=== PATIENT | female | born 1965 | race Caucasian/White ===

== ENCOUNTER 2018-07-18 15:56 | Emergency (ER) | payer OTHER ==
--- NOTE | 2018-07-18 16:01 | PDOC ---
Rapid Medical Evaluation Chief Complaint: Vaginal Bleeding Time Seen by Provider: 07/18/18 15:59 Medical Evaluation: Allergies Allergy/AdvReac Type Severity Reaction Status Date / Time cephalexin monohydrate Allergy Verified 02/11/14 09:48 [From Keflex] erythromycin base Allergy Verified 02/11/14 09:48 [Erythromycin Base] Penicillins Allergy Verified 02/11/14 09:48 tetracycline [Tetracycline] Allergy Verified 02/11/14 09:48 aspirin AdvReac Verified 02/11/14 09:48 07/18/18 16:00 I have performed a brief in person evaluation of the patient. The patient presents with a CC of: vaginal bleeding Pt is post menopausal 5-6 years. Pt states she has had "spotting x 2-3 days." No family hx of uterine CA or ovarian CA. PE: Skin: No visible rash Lungs: Clear Heart:RRR MS: Moves all extremities without difficulty Neuro: Alert and oriented Psych: Approrpriate affect I have ordered the following: nothing at this time. The patient will proceed to the ED for further evaluation. Discharge Disposition - Diagnosis Vaginal bleeding - Referrals Referrals: Sanjuana Cho MD [Primary Care Provider] - - Patient Instructions - Post Discharge Activity
[2018-07-18 16:02] VITALS: BP 170/86; PULSE 89; TEMP 97.8; BMI 51.5
[2018-07-18 17:04] LABS: BASO % 1.3 % (0-2.0); EOS % 4.7 % (0-4.5); HEMATOCRIT 44.4 % (32.4-45.2); HEMOGLOBIN 15.2 GM/dL (10.7-15.3); MCH 30.3 pg (25.7-33.7); MCHC 34.3 g/dl (32.0-36.0); MEAN CELL VOLUME 88.4 fl (80-96); MEAN PLT VOLUME 8.2 fl (7.5-11.1); MONO % 7.7 % (3.8-10.2); NEUT % 61.3 % (42.8-82.8); PLATELET COUNT 307 K/MM3 (134-434); RBC 5.02 M/mm3 (3.60-5.2); RDW 13.8 % (11.6-15.6); WHITE BLOOD COUNT 6.8 K/mm3 (4.0-10.0)
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
--- NOTE | 2018-07-18 17:17 | PDOC ---
Attending Attestation - Resident Resident Name: VeroRosetta - ED Attending Attestation I have performed the following: I have examined & evaluated the patient, The case was reviewed & discussed with the resident, I agree w/resident's findings & plan, Exceptions are as noted - HPI HPI: 07/18/18 16:55 53 yo female p/w post menopausal vaginal bleeding -her LMP was 5 years ago -she has an appt w [facility]OLOG[facility]ER on Tuesday - - Physicial Exam PE: 07/18/18 17:17 obese 53 yo female w vaginal bleeding head ncat neck supple lungs cta b/l cvs [id number] abd protuberant,nontender exam done by the PA and reported as brownish discharge,no large clots neuro axox3 ,ambulatory 07/18/18 18:19 - Medical Decision Making 07/18/18 18:21 labs reviewed and there is no anemia pelvic US showed endometrial hyperplasia and maybe endometrial polyps vs neoplastic process. the results were explained to the pt and she has an appt with filenet architect on Tuesday
== END 2018-07-18 18:50 | disposition home or self-care (01) ==
LOC: JER 15:56
DX: N95.0 Postmenopausal bleeding (principal); I10 Essential (primary) hypertension; Z87.09 Personal history of other diseases of the respiratory system; Z86.718 Personal history of other venous thrombosis and embolism; Z79.82 Long term (current) use of aspirin; Z88.0 Allergy status to penicillin; Z88.1 Allergy status to other antibiotic agents; Z88.6 Allergy status to analgesic agent
CPT/HCPCS: 36415; 76830-TC; 85025; 99282-25

== ENCOUNTER 2018-08-10 12:22 | Day surgery (SDC) | payer OTHER ==
[2018-07-25 13:19] VITALS: BMI 53.2
--- NOTE | 2018-08-10 14:16 | HP ---
Admitting History and Physical - Admission Chief Complaint: Vaginal bleeding History of Present Illness: 53 yo Para 3 with postmenopausal bleeding, is pre op for D&C Hysteroscopy. History Source: Patient Limitations to Obtaining History: No Limitations - Past Medical History ...: No ...Para: 3 - Past Surgical History Additional Past Surgical History: Laparoscopy - Smoking History Smoking history: Never smoked Have you smoked in the past 12 months: No - Alcohol/Substance Use Hx Alcohol Use: No - Social History Usual Living Arrangement: Yes: With Spouse History of Recent Travel: No Home Medications - Allergies Allergies/Adverse Reactions: Allergies Allergy/AdvReac Type Severity Reaction Status Date / Time cephalexin monohydrate Allergy Rash Verified 07/25/18 13:21 [From Keflex] erythromycin base Allergy Rash Verified 07/25/18 13:21 [Erythromycin Base] Penicillins Allergy Rash Verified 07/25/18 13:21 tetracycline [Tetracycline] Allergy Rash Verified 07/25/18 13:21 aspirin AdvReac Verified 07/25/18 13:20 - Home Medications Home Medications: Ambulatory Orders Aspirin [Aspirin EC] 81 mg PO DAILY 07/25/18 Cholecalciferol (Vitamin D3) [Vitamin D3] 1,000 unit PO DAILY 07/25/18 Esomeprazole Magnesium [Nexium 24Hr] 20 mg PO DAILY 07/25/18 Furosemide [Lasix] 40 mg PO DAILY 07/25/18 Magnesium Amino Acid Chelate [Magnesium] 100 mg PO DAILY 07/25/18 Metoprolol Succinate 50 mg PO DAILY 07/25/18 [place]-3 Fatty Acids/Fish Oil [Fish Oil 1,000 mg Capsule] 1 each PO DAILY Ubidecarenone/Vit E Acet [Co Q-10 100 mg Softgel] 1 each PO DAILY 07/25/18 Family Disease History - Family Disease History Family History: Unremarkable Review of Systems - Review of Systems Constitutional: reports: No Symptoms Eyes: reports: No Symptoms HENT: reports: No Symptoms Neck: reports: No Symptoms Cardiovascular: reports: No Symptoms Respiratory: reports: No Symptoms Gastrointestinal: reports: No Symptoms Genitourinary: reports: Vaginal Bleeding Musculoskeletal: reports: No Symptoms Integumentary: reports: No Symptoms Neurological: reports: No Symptoms Endocrine: reports: No Symptoms Hematology/Lymphatic: reports: No Symptoms Psychiatric: reports: No Symptoms Pain Intensity: 0 Physical Examination Vital Signs: Vital Signs Temperature 97.3 F L 11/29/18 13:22 Pulse Rate 97 H 08/10/18 13:22 Respiratory Rate 16 08/10/18 13:22 Blood Pressure 127/77 08/10/18 13:22 O2 Sat by Pulse Oximetry (%) 96 08/10/18 13:22 Constitutional: Yes: Well Nourished Eyes: Yes: Conjunctiva Clear HENT: Yes: Atraumatic Neck: Yes: Supple Cardiovascular: Yes: Regular Rate and Rhythm Respiratory: Yes: Regular, CTA Bilaterally Neurological: Yes: Alert, Oriented ...Motor Strength: WNL Psychiatric: Yes: Alert, Oriented Assessment/Plan Postmenopausal bleeding Pre op for D&C hysteroscopy Consent signed Anesthesia to see patient
[2018-08-10] MEDS ORDERED: PROPOFOL 20 ML ONE (14:28)
[2018-08-10] MEDS ORDERED: SUCCINYLCHOLINE CHLORIDE 200 MG/10 ML VIAL ONE (14:28)
--- NOTE | 2018-08-10 14:59 | OP ---
Operative Note - Note: Operative Date: 08/10/18 Pre-Operative Diagnosis: Postmenopausal bleeding Operation: D&C Hysteroscopy Post-Operative Diagnosis: Same as Pre-op Surgeon: Ellie Nino Anesthesia: General Specimens Removed: Endometrial curetings Estimated Blood Loss (mls): 3 Operative Report Dictated: Yes
--- NOTE | 2018-08-10 15:25 | OP ---
DATE OF OPERATION: 08/10/2018 PREOPERATIVE DIAGNOSIS: Postmenopausal bleeding. POSTOPERATIVE DIAGNOSIS: Postmenopausal bleeding. PROCEDURE: Dilation and curettage hysteroscopy. SURGEON: Ellie Nino MD ANESTHESIA: General. COMPLICATIONS: None. ESTIMATED BLOOD LOSS: Less than 5 mL. PROCEDURE DESCRIPTION: The patient was taken to the operating room, where general anesthesia was administered. Patient was then placed in lithotomy position. She was then prepped and draped in appropriate sterile fashion. A weighted speculum was placed in the vagina. The anterior lip of the cervix was grasped with a single-tooth tenaculum. Then the uterus was sounded to 8 cm and a 5-mm hysteroscope was then gently introduced into the uterine cavity. The cavity was visualized. There was no polyp noted. Both ostia were visualized. Then we proceeded with sequential dilation of the cervix, and a sharp curettage was then performed. A 2nd look with the hysteroscope was then undertaken and then, when finished, the instruments were removed. The patient was taken out of lithotomy position. She was taken to PACU in stable condition. PATHOLOGY: Endometrial curettings. Ellen PEMBERTON/[id number]
[2018-08-10 16:57] VITALS: BP 113/74; PULSE 72; TEMP 98
--- NOTE | 2018-08-15 15:36 | PATH ---
Surgical Pathology Report Patient Name: BEATRIZ THACKER [facility]. Rec. #: [id number] /Age/Gender: 1965 (Age: 53) / F Account: [id number] Location: [facility] SURGICAL Taken: 08/10/2018 Received: 08/11/2018 Reported: 08/14/2018 Physicians: Ellie Nino M.D. Specimen(s) Received ENDOMETRIAL CURETTINGS Clinical History Postmenopausal bleeding Final Diagnosis ENDOMETRIAL CURETTINGS, DILATION AND CURETTAGE: FRAGMENTS OF WEAKLY PROLIFERATIVE ENDOMETRIUM WITH PAPILLARY SYNCYTIAL METAPLASIA, FOCAL ACUTE INFLAMMATION, AND SCANT BENIGN ENDOCERVICAL GLANDS. Electronically Signed Mariola Guzman M.D. Gross Description Received in formalin labeled "endometrial curettings," is a 2.5 x 2.3 x 0.3 cm aggregate of nino-brown soft tissue fragments admixed with mucus. The formalin is filtered and the specimen is entirely submitted in one cassette. 08/11/2018 [place]08/11/2018
== END 2018-08-10 17:55 | disposition home or self-care (01) ==
LOC: JASU-SURG 12:22
PROVIDERS: ATTEND Obstetrics & Gynecology
PROC: 0UDB7ZX Extraction of Endometrium, Via Natural or Artificial Opening, Diagnostic (ICD-10-PCS; principal; 2018-08-10 14:00)
PROC: 0UJD8ZZ Inspection of Uterus and Cervix, Via Natural or Artificial Opening Endoscopic (ICD-10-PCS; 2018-08-10 14:00)
DX: N95.0 Postmenopausal bleeding (principal)
CPT/HCPCS: 88305-TC; 94760

== ENCOUNTER 2018-12-06 09:38 | Emergency (ER) | payer OTHER ==
[2018-12-06 09:49] VITALS: TEMP 98.3; BMI 49.9
--- NOTE | 2018-12-06 10:16 | PDOC ---
History of Present Illness - General History Source: Patient Exam Limitations: No Limitations - History of Present Illness Initial Comments: 12/06/18 11:16 The patient is a 53 year old female, with a significant past medical history of hypertension and asthma, who presents to the emergency department with, worsening sharp, constant right lower quadrant, right flank, and right hip pain worsening with movement. She endorses taking 600mg of Ibuprofen, without relief. She denies recent fevers, chills, headache or dizziness. She denies recent nausea, vomit, diarrhea or constipation. She denies recent dysuria, frequency, urgency or hematuria. She denies recent chest pain or shortness of breath. Allergies: Hives with penicillin, Keflex, tetracycline, erythromycin Past surgical history: D&C, 3 C-sections, right pneumothorax, expiratory lap, ruptured spleen, splenectomy. Social history: Nonsmoker. Denies EtOH use and recreational drug use. Primary Care Physician: Dr. Cho <Luzmaria Colby - Last Filed: 12/06/18 11:16> <Brendan Garcia - Last Filed: 12/13/18 16:12> - General Chief Complaint: Pain, Acute Stated Complaint: RT LOWER BACK PAIN Time Seen by Provider: 12/06/18 10:15 Past History <Luzmaria Colby - Last Filed: 12/06/18 11:16> - Past Medical History Anemia: No Asthma: Yes Cancer: Yes (skin cancer) Cardiac Disorders: No CVA: Yes (?mini -stroke 03/2018) COPD: No CHF: No Dementia: No Diabetes: No GI Disorders: Yes (reflux) Disorders: No HTN: Yes Hypercholesterolemia: No Liver Disease: No Seizures: No Thyroid Disease: No - Surgical History Abdominal Surgery: Yes (EXPLORATORY, GI BLEED) - Suicide/Smoking/Psychosocial Hx Smoking History: Never smoked Have you smoked in the past 12 months: No Hx Alcohol Use: No Drug/Substance Use Hx: No Substance Use Type: None Hx Substance Use Treatment: No <Brendan Garcia - Last Filed: 12/13/18 16:12> - Past Medical History Allergies/Adverse Reactions: Allergies Allergy/AdvReac Type Severity Reaction Status Date / Time cephalexin monohydrate Allergy Rash Verified 12/06/18 09:46 [From Keflex] erythromycin base Allergy Rash Verified 12/06/18 09:46 [Erythromycin Base] Penicillins Allergy Rash Verified 12/06/18 09:46 tetracycline [Tetracycline] Allergy Rash Verified 12/06/18 09:46 aspirin AdvReac Verified 12/06/18 09:46 Home Medications: Ambulatory Orders Aspirin [Aspirin EC] 81 mg PO DAILY 07/25/18 Cholecalciferol (Vitamin D3) [Vitamin D3] 1,000 unit PO DAILY 07/25/18 Esomeprazole Magnesium [Nexium 24Hr] 20 mg PO DAILY 07/25/18 Magnesium Amino Acid Chelate [Magnesium] 100 mg PO DAILY 07/25/18 Metoprolol Succinate 50 mg PO DAILY 07/25/18 [place]-3 Fatty Acids/Fish Oil [Fish Oil 1,000 mg Capsule] 1 each PO DAILY Ubidecarenone/Vit E Acet [Co Q-10 100 mg Softgel] 1 each PO DAILY 07/25/18 traMADol HCL [Ultram -] 50 mg PO Q6H PRN #12 tablet MDD 4 tabs a day 12/06/18 Review of Systems - Review of Systems Able to Perform ROS?: Yes Comments:: 12/06/18 11:17 CONSTITUTIONAL: No fever, no chills, no fatigue EYES: No visual changes ENT: No ear pain, no sore throat CARDIOVASCULAR: No chest pain, no palpitations RESPIRATORY: No cough, no SOB GI: +Right lower quadrant pain. No nausea, no vomiting, no constipation, no diarrhea GENITOURINARY: No dysuria, no frequency, no hematuria MUSKULOSKELETAL: +Right hip pain. +Right flank pain. No joint pain. SKIN: No rash NEURO: No headache All Other Systems: Reviewed and Negative <Luzmaria Colby - Last Filed: 12/06/18 11:16> *Physical Exam - Vital Signs Last Vital Signs Temp Pulse Resp BP Pulse Ox 98.3 F 72 20 148/71 97 12/06/18 09:47 12/06/18 09:47 12/06/18 09:47 12/06/18 09:47 12/06/18 09:47 <Luzmaria Colby - Last Filed: 12/06/18 11:16> - Vital Signs Last Vital Signs Temp Pulse Resp BP Pulse Ox 98.3 F 72 20 148/71 97 12/06/18 09:47 12/06/18 09:47 12/06/18 09:47 12/06/18 09:47 12/06/18 09:47 <Brendan Garcia - Last Filed: 12/13/18 16:12> ED Treatment Course - Medications Given in the ED: ED Medications Discontinued Medications Generic Name Dose Route Start Last Admin Trade Name Freq PRN Reason Stop Dose Admin Tramadol HCl 50 mg 12/06/18 10:33 12/06/18 11:05 Ultram - PO 12/06/18 10:34 50 mg ONCE ONE Administration <Luzmaria Colby - Last Filed: 12/06/18 11:16> - LABORATORY CBC & Chemistry Diagram: 12/06/18 11:01 12/06/18 10:32 <Brendan Garcia - Last Filed: 12/13/18 16:12> *DC/Admit/Observation/Transfer - Attestations Scribe Attestion: 12/06/18 11:19 Documentation prepared by Luzmaria Colby, acting as medical laboratory technicians for Brendan Garcia MD. <Luzmaria Colby - Last Filed: 12/06/18 11:16> <Brendan Garcia - Last Filed: 12/13/18 16:12> Diagnosis at time of Disposition: Flank pain, Hip pain - Discharge Dispostion Disposition: HOME Condition at time of disposition: Stable - Prescriptions Prescriptions: traMADol HCL [Ultram -] 50 mg PO Q6H PRN #12 tablet MDD 4 tabs a day PRN Reason: Moderate Pain - Referrals Referrals: Sanjuana Cho MD [Primary Care Provider] - Yovani Rodriguez DO [Staff Physician] - - Patient Instructions Printed Discharge Instructions: DI for Flank Pain, DI for Hip Pain Additional Instructions: Please make an appointment to see your PMD and your orthopedist. Please take all medications as prescribed. Please return to the ED with any further concerns or complaints. - Post Discharge Activity
[2018-12-06] MEDS ORDERED: traMADol HCL 50 MG TABLET PO ONE (10:33)
[2018-12-06] MEDS ORDERED: SODIUM CHLORIDE 500 ML IV STA (10:33)
[2018-12-06] MEDS ORDERED: traMADol HCL 50 MG TABLET ONE (10:55)
[2018-12-06 11:31] LABS: BASO % 2.3 % (0-2.0); EOS % 5.5 % (0-4.5); HEMATOCRIT 41.9 % (32.4-45.2); HEMOGLOBIN 13.7 GM/dL (10.7-15.3); LYMPH % 32.2 % (8-40); MCH 29.2 pg (25.7-33.7); MCHC 32.8 g/dl (32.0-36.0); MEAN PLT VOLUME 8.2 fl (7.5-11.1); MONO % 8.5 % (3.8-10.2); NEUT % 51.5 % (42.8-82.8); PLATELET COUNT 266 K/MM3 (134-434); RBC 4.71 M/mm3 (3.60-5.2); RDW 13.8 % (11.6-15.6); WHITE BLOOD COUNT 7.5 K/mm3 (4.0-10.0)
[2018-12-06 11:56] LABS: ALBUMIN 2.9 g/dl (3.4-5.0); ALK PHOS 149 U/L (45-117); ANION GAP 4 MMOL/L (8-16); BILIRUBIN,TOTAL 0.3 mg/dL (0.2-1); BLOOD UREA NITROGEN 14 mg/dL (7-18); CHLORIDE 107 mmol/L (98-107); CO2 28 mmol/L (21-32); CREATININE 0.7 mg/dL (0.55-1.3); GLUCOSE,RANDOM 83 mg/dL (74-106); POTASSIUM 4.6 mmol/L (3.5-5.1); SGOT/AST 24 U/L (15-37); SGPT/ALT 25 U/L (13-61); SODIUM 139 mmol/L (136-145); TOT PROT 6.8 g/dl (6.4-8.2)
--- NOTE | 2018-12-06 17:59 | PDOC ---
*Physical Exam - Vital Signs Last Vital Signs Temp Pulse Resp BP Pulse Ox 98.3 F 72 20 148/71 97 12/06/18 09:47 12/06/18 09:47 12/06/18 09:47 12/06/18 09:47 12/06/18 09:47 - Physical Exam Comments: 12/06/18 19:28 gen: aaox3, nad abd: obese, ttp R flank and R hip, no RUQ ttp, no murphys, no cva ttp ED Treatment Course - LABORATORY CBC & Chemistry Diagram: 12/06/18 11:01 12/06/18 10:32 - ADDITIONAL ORDERS Additional order review: Laboratory Results 12/06/18 10:32 Sodium 139 Potassium 4.6 Chloride 107 Carbon Dioxide 28 Anion Gap 4 L BUN 14 Creatinine 0.7 Creat Clearance w eGFR 86.88 Random Glucose 83 Calcium 9.0 Total Bilirubin 0.3 AST 24 ALT 25 Alkaline Phosphatase 149 H Total Protein 6.8 Albumin 2.9 L 12/06/18 11:01 RBC 4.71 MCV 89.0 MCHC 32.8 RDW 13.8 MPV 8.2 Neutrophils % 51.5 Lymphocytes % 32.2 Monocytes % 8.5 Eosinophils % 5.5 H Basophils % 2.3 H - Medications Given in the ED: ED Medications Discontinued Medications Generic Name Dose Route Start Last Admin Trade Name [place] PRN Reason Stop Dose Admin Sodium Chloride 500 mls @ 500 mls/hr 12/06/18 10:33 12/06/18 11:03 Normal Saline - IV 12/06/18 11:32 500 mls/hr ASDIR STA Administration Tramadol HCl 50 mg 12/06/18 10:33 12/06/18 11:05 Ultram - PO 12/06/18 10:34 50 mg ONCE ONE Administration Medical Decision Making - Medical Decision Making 12/06/18 17:58 Pt signed out from the prior attending pending urine results and ct imaging. pt with R flank and R hip pain 12/06/18 19:29 ct does not show acute appy or acute intraabd pathology discussed gallstones with the patient, who states she knows about the gallstones and they are not bothering her, no n/v, no postprandial pain arthritis pain in right hip pt has given urine, now sent pending ua results 12/06/18 20:02 pt has been ambulatory in the ED with a steady gait 12/06/18 20:19 ua negative pt requesting to go home discussed follow up and all reasons to return to the ED *DC/Admit/Observation/Transfer Diagnosis at time of Disposition: Flank pain, Hip pain - Discharge Dispostion Disposition: HOME Condition at time of disposition: Stable Decision to Admit order: No - Prescriptions Prescriptions: traMADol HCL [Ultram -] 50 mg PO Q6H PRN #12 tablet MDD 4 tabs a day PRN Reason: Moderate Pain - Referrals Referrals: Sanjuana Cho MD [Primary Care Provider] - Yovani Rodriguez DO [Staff Physician] - - Patient Instructions Printed Discharge Instructions: DI for Flank Pain, DI for Hip Pain Additional Instructions: Please make an appointment to see your PMD and your orthopedist. Please take all medications as prescribed. Please return to the ED with any further concerns or complaints. - Post Discharge Activity
[2018-12-06 20:05] LABS: URINE APPEARANCE CLEAR; URINE BILIRUBIN NEGATIVE (NEGATIVE); URINE COLOR YELLOW; URINE GLUCOSE (UA) NEGATIVE (NEGATIVE); URINE KETONE NEGATIVE (NEGATIVE); URINE LEUK ESTERASE NEGATIVE (NEGATIVE); URINE NITRITE NEGATIVE (NEGATIVE); URINE PROTEIN NEGATIVE (NEGATIVE); URINE UROBILINOGEN 0.2 mg/dL (0.2-1.0)
[2018-12-06 20:39] VITALS: BP 131/65; PULSE 94
== END 2018-12-06 20:38 | disposition home or self-care (01) ==
LOC: JER 09:38
PROC: 3E0337Z Introduction of Electrolytic and Water Balance Substance into Peripheral Vein, Percutaneous Approach (ICD-10-PCS; principal; 2018-12-06)
DX: M25.551 Pain in right hip (principal); R10.31 Right lower quadrant pain; I10 Essential (primary) hypertension; J45.909 Unspecified asthma, uncomplicated; K21.9 Gastro-esophageal reflux disease without esophagitis
CPT/HCPCS: 36415; 73523-TC-FY; 74177-TC; 80053; 81003; 85025; 87077; 87086; 96360; 99281-25

== ENCOUNTER 2019-02-27 14:46 | Emergency (ER) | payer OTHER | END 2019-02-27 18:50 | disposition home or self-care (01) | LOC: JER 14:46 ==

== ENCOUNTER 2023-01-14 12:36 | Emergency (ER) | payer OTHER ==
[2023-01-14 12:57] VITALS: BP 137/58; PULSE 72; RESP 18; TEMP 97.6; BMI 50.6
[2023-01-14] MEDS ORDERED: IBUPROFEN 600 MG TABLET (FP) PO ONE ×2 (14:37→14:50)
[2023-01-14 15:27] LABS: BASO % 1.1 % (0-2.0); EOS % 6.1 % (0-4.5); HEMATOCRIT 43.7 % (32.4-45.2); HEMOGLOBIN 15.2 GM/dL (10.7-15.3); LYMPH % 25.9 % (8-40); MCH 31.4 pg (25.7-33.7); MCHC 34.9 g/dl (32.0-36.0); MEAN PLT VOLUME 8.7 fl (7.5-11.1); MONO % 7.4 % (3.8-10.2); NEUT % 59.5 % (42.8-82.8); PLATELET COUNT 295 10^3/uL (134-434); RBC 4.85 M/mm3 (3.60-5.2); WHITE BLOOD COUNT 9.9 K/mm3 (4.0-10.0)
[2023-01-14 15:51] LABS: POTASSIUM 4.6 mmol/L (3.5-5.1)
[2023-01-14 15:53] LABS: CALCIUM 9.5 mg/dL (8.5-10.1)
[2023-01-14 15:54] LABS: ALBUMIN 3.6 g/dl (3.4-5.0); BLOOD UREA NITROGEN 13.7 mg/dL (7-18)
[2023-01-14 15:56] LABS: BILIRUBIN,DIRECT 0.1 mg/dL (0.0-0.2)
[2023-01-14 15:57] LABS: CREATININE 0.9 mg/dL (0.55-1.3)
[2023-01-14 15:58] LABS: BILIRUBIN,TOTAL 0.6 mg/dL (0.2-1); TOT PROT 7.6 g/dl (6.4-8.2)
== END 2023-01-14 16:44 | disposition home or self-care (01) ==
LOC: JER 12:36
DX: R07.89 Other chest pain (principal)
CPT/HCPCS: 36415; 71046-TC-FY; 80048; 80076; 82550; 84484; 85025; 93005; 93010; 99285-25